=== PATIENT | male | born 1945 | race Caucasian/White ===

== ENCOUNTER 2018-05-31 10:30 | Inpatient (IN) ==
[2018-05-31 13:44] LABS: BASO# 0.02 X1000 (0.0-0.2); BASO% 0.3 % (0.0-0.8); EOS# 0.18 X1000 (0.0-0.7); EOS% 2.3 % (0.0-10.0); IMM GRAN# 0.03 X1000 (0.0-0.04); IMM GRAN% 0.4 % (0.0-0.5); LYMPH% 20.7 % (20.5-51.1); MCV 90.1 FL (81-99); MONO# 0.75 X1000 (0.11-0.59); MONO% 9.7 % (1.7-9.3); MPV 11.6 FL (7.4-10.4); NEUT# 5.15 X1000 (1.4-6.5); NEUT% 66.6 % (42.2-75.2); PLT 174 X1000 (130-400); RBC 3.33 XMIL (4.7-6.1); RDW 16.1 % (11.5-14.5); WBC 7.73 X1000 (4.8-10.8)
[2018-05-31] MEDS: PROTONIX IV SCH (13:48)
[2018-05-31] MEDS: SODIUM CHLORIDE 0.9% INJ SCH (13:48)
[2018-05-31 14:03] LABS: AGAP 12; BUN 15 mg/dL (8-22); CALCIUM 9.1 mg/dL (8.8-10.2); CHLORIDE 106 mmol/L (98-107); COSMO 287; CREATININE 0.7 mg/dL (0.7-1.2); ESTIMATED GFR > 60; GLUCOSE 152 mg/dL (70-104); POTASSIUM 3.7 mmol/L (3.5-5.1); SODIUM 142 mmol/L (136-145); TCO2 24 mmol/L (25-35)
--- NOTE | 2018-05-31 19:10 | Diag Imaging Result Doc PS360 ---
EXAM: CHEST-2 VIEWS 05/31/2018 HISTORY: SOB TECHNIQUE: PA and lateral chest COMMENT: There are bilateral pleural effusions. The effusion on the right was not present on 12/31/2017. There is also increased interstitial opacity generally. IMPRESSION: Pulmonary edema and pleural effusions. Electronically signed by Hardeep Cuadra 05/31/2018 7:08 PM
[2018-05-31] MEDS ORDERED: LASIX IV ONE (20:17)
[2018-05-31] MEDS ORDERED: LANOXIN IV ONE (20:59)
--- NOTE | 2018-05-31 21:22 | HISTORY AND PHYSICAL ---
CHIEF COMPLAINT: Passing black tarry stool this morning. HISTORY OF PRESENT ILLNESS: He is a 73-year-old, pleasant, white gentleman, with a known history of occult GI bleeding and has chronic atrial fibrillation waiting for Watchman device on of this month on Plavix, basically came in with black tarry stools. Previously seen by Dr. Blackburn. Since he is in the hospital, he is hemodynamically stable. No bowel movement noted. He was just admitted to observation for a follow up on serial hematocrits. He also complains of shortness of breath, chest x-ray, cardiomegaly with CHF and he is on atrial fibrillation in the past before. He is getting IV Lasix. As a result, hospital admission was warranted. PAST MEDICAL HISTORY: 1. CAD. 2. Type 2 diabetes. 3. Metabolic syndrome. 4. Hyperlipidemia. 5. Hypertension. 6. Superficial bladder tumors. 7. BPH. 8. History of occult GI bleeding. 9. 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 10. Atrial fibrillation with a diastolic heart failure. PAST SURGICAL HISTORY: Hemorrhoidectomy, CAD with stents in RCA and circumflex. Left carotid endarterectomy. Cholecystectomy. ALLERGIES: Not known. 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 No smoking. No alcohol. FAMILY HISTORY: Father of laryngeal cancer and heart attack at the age of 76. Mom of heart attack at 72. HEALTH MAINTENANCE: Flu vaccine, pneumococcal vaccine up to date. MEDICATIONS: Ultram 50 t.i.d., Lasix 40 daily, metformin 850 t.i.d., Precose 25 p.o. t.i.d., Plavix 75 daily, Crestor 20 daily, Betapace 120 p.o. b.i.d., amlodipine 5 daily. REVIEW OF SYSTEMS: HEENT: No dizziness, no headache, no vision problem. Neck: No goiter. No lymphadenopathy. Cardiopulmonary: Shortness of breath, tachycardia. No PND. No orthopnea. No swelling of feet. GI: Passing black tarry stools. No abdominal pain. : History of hesitancy, no hematuria or dysuria. Neurological: No focal symptoms or weakness. PHYSICAL EXAMINATION: VITAL SIGNS: Temperature is 97, pulse is 80, hemodynamics were stable. Room air 93%. 5 feet 9 inches, 240 pounds. HEENT: Atraumatic, normocephalic. No pallor noted. TMs are normal. Nose and throat within normal limits. NECK: Supple. No lymphadenopathy. CHEST: Bilateral air entry. CARDIAC: Irregular heart sounds. ABDOMEN: Belly is soft, obese, nontender. Good bowel sounds. RECTAL: Did not repeat. EXTREMITIES: No peripheral edema. NEUROLOGIC: No obvious neurological deficits. INVESTIGATIONS: CBC: White cell count 7.7, hematocrit 30, platelets 174. SMA-7 is normal. Glucose 202. Chest x-ray cardiomegaly with mild CHF. Last perfusion scan by extender inferior wall scar. No evidence of inducible ischemia. EF is 58%. ASSESSMENT AND PLAN: 1. A 73-year-old, white male, basically admitted to the hospital with gastrointestinal bleeding with previous history of occult gastrointestinal bleeding and not able to tolerate anticoagulation. Plan is serial hematocrit, orthostatic. If hematocrit below 25, transfuse. Continue IV Protonix, hold the medications. 2. Cardiomegaly with congestive heart failure. IV Lasix x1. 3. Reconcile home medicines. 4. Drug-induced lupus. We will discontinue hydralazine and waiting for Watchman device on the and follow up on stool for occult blood and EKG. cc: Ruslan Allan MD
[2018-05-31] MEDS: HUMALOG SUBQ SCH ×2 (22:11→22:30)
[2018-06-01] MEDS: HUMALOG SUBQ SCH ×4 (06:37→21:37)
[2018-06-01 06:45] LABS: BASO# 0.03 X1000 (0.0-0.2); BASO% 0.4 % (0.0-0.8); EOS# 0.14 X1000 (0.0-0.7); EOS% 1.9 % (0.0-10.0); HEMATOCRIT 29.2 % (42.0-52.0); HEMOGLOBIN 8.8 g/dL (14.0-18.0); IMM GRAN# 0.04 X1000 (0.0-0.04); IMM GRAN% 0.5 % (0.0-0.5); LYMPH# 1.32 X1000 (1.2-3.4); LYMPH% 17.9 % (20.5-51.1); MCH 27.1 PG (27-31); MCHC 30.1 g/dL (33-37); MCV 89.8 FL (81-99); MONO% 9.5 % (1.7-9.3); MPV 12.2 FL (7.4-10.4); NEUT# 5.16 X1000 (1.4-6.5); NEUT% 69.8 % (42.2-75.2); PLT 165 X1000 (130-400); RBC 3.25 XMIL (4.7-6.1); RDW 15.9 % (11.5-14.5); WBC 7.39 X1000 (4.8-10.8)
[2018-06-01 07:06] LABS: AGAP 12; BUN 10 mg/dL (8-22); CALCIUM 8.7 mg/dL (8.8-10.2); CHLORIDE 104 mmol/L (98-107); COSMO 280; CREATININE 0.5 mg/dL (0.7-1.2); ESTIMATED GFR > 60; GLUCOSE 135 mg/dL (70-104); POTASSIUM 3.2 mmol/L (3.5-5.1); SODIUM 140 mmol/L (136-145); TCO2 24 mmol/L (25-35)
--- NOTE | 2018-06-01 07:31 | EKG Report ---
Test Performed on : 05/31/2018 9:06:32 PM Test Reason : SOB Blood Pressure : / mmHG Vent. Rate : 101 BPM Atrial Rate : 093 BPM P-R Int : 000 ms QRS Dur : 106 ms QT Int : 320 ms P-R-T Axes : 000 030 154 degrees QTc Int : 414 ms Atrial fibrillation. with rapid ventricular response. ST & T wave abnormality, consider lateral ischemia Abnormal ECG When compared with ECG of 02-FEB-2018 14:56, QT has shortened Unconfirmed Result
[2018-06-01] MEDS ORDERED: LASIX IV ONE (13:01)
[2018-06-01] MEDS: PROTONIX IV SCH (13:17)
[2018-06-01] MEDS: SODIUM CHLORIDE 0.9% INJ SCH (13:17)
--- NOTE | 2018-06-01 19:08 | CARDIOLOGY CONSULTATION ---
DATE: 06/01/2018 CHIEF COMPLAINT ON PRESENTATION: Tarry stool. HISTORY OF PRESENT ILLNESS: Mr. Cruz is a 73-year-old white male with a history of coronary disease and diastolic heart failure as well as atrial fibrillation. He presented for evaluation of tarry stool that has been going on for around a week. He has a chronic history of GI bleeding and had been reinitiated on Plavix recently. He stopped the Plavix on Thursday and has continued to have some bloody stool. Over that time period he has had continued bouts of shortness of breath and occasional smothering episodes. He reports compliance with his medications and he does not endorse any sort of sodium indiscretion or fluid overload. The patient has been arranged for a Watchman device evaluation on the this month but apparently canceled it secondary to his tarry stool. PAST MEDICAL HISTORY: 1. Significant for coronary disease. He has a history of cardiac catheterization in 2015 in [place] showing a normal left main. The LAD had mild irregularities up to 30-40% the midvessel. Circumflex had mild in-stent stenosis of less than 40% in the midvessel. There is OM1 that was small with diffuse disease up to 80%, OM2 had ostial 40-50% lesions, RCA was dominant with a patent stent with a 60-70% in-stent stenosis. This was not treated secondary to the patient's history of GI bleeding was deemed appropriate for medical therapy. 2. Atrial fibrillation that is paroxysmal in nature and maintained on sotalol. He has had multiple episodes of GI bleeding with evaluations at [facility]. He has not been able to tolerate any sort of anticoagulation, Plavix or aspirin due to GI bleeding. 3. Diastolic heart failure. Last echocardiogram performed in April 2018 demonstrating EF 65%, septal and posterior wall thicknesses of 1.8 cm each, end-diastolic dimension of 4.5 cm. Normal right ventricular size and function. PA pressure was 65. 4. Pulmonary hypertension as demonstrated by echocardiogram in April 2018 showing a PA pressure of 65 mmHg. 5. Diabetes mellitus. 6. Hyperlipidemia. 7. Hypertension. 8. Carotid artery disease with left carotid endarterectomy in September 2013. 9. GI bleeding. 10. Iron deficiency anemia. Follows with Dr. Carmen Yancey for iron infusions. 11. BPH. SOCIAL HISTORY: He is . is present in the room. No current tobacco use. FAMILY HISTORY: Father of laryngeal cancer and a heart attack at age 76. Mother of a heart attack at 72. REVIEW OF SYSTEMS: A 10 system review of systems is negative except for those mentioned in HPI. PHYSICAL EXAMINATION: The patient is afebrile. His heart rate is 108, blood pressure 163/60.General: He is in no acute distress. HEENT: Oropharynx is moist. Poor dentition. Eye examination shows pink conjunctivae. White sclerae. Neck: Shows no obvious thyromegaly or thyroid tenderness. Cardiovascular: He is in a irregularly irregular rhythm. I do not hear any obvious murmurs. He has no S3. He has no lower extremity edema. Chest: Sounds relatively clear. He has no increased work of breathing. Abdomen: Soft, nontender, nondistended. He has no obvious organomegaly. Skin: Warm and dry throughout without any rashes. Neurological: Moving all extremities well. He has no lateralizing deficits. Psychiatric: Alert and oriented, pleasant. Normal mood and affect. PERTINENT DATA: EKG May 31 at 2106 shows atrial fibrillation, ST depression in the lateral leads, suggestion of left ventricular hypertrophy. It was reviewed by me. His chest x-ray demonstrated pulmonary edema with pleural effusions. Laboratory data shows a white count 7.39, hematocrit 29.2, platelet count 165,000, sodium 140, potassium 3.2, BUN 10, creatinine 0.5, ProBNP is 1899. ASSESSMENT: Mr. Cruz is a 73-year-old male with a history of coronary disease and diastolic failure. He presented with gastrointestinal bleeding. PLAN: He may be in some mild diastolic failure. I have reinitiated his medications including his antihypertensives as well as his Lasix. We will continue with those medications for the time being. In addition, he appears to be in atrial fibrillation. I have restarted his sotalol. His last EKG that we have on file from January appears to demonstrate that he is in atrial fibrillation as well. He has a EKG from visit with Dr. Pineda on April 28 appears to be in atrial fibrillation on that visit as well. We may decide to discontinue the sotalol, initiate a beta michael and pursue a rate control approach as opposed to rhythm control approach. cc: MD Ruslan Carpenter MD
[2018-06-01] MEDS: CRESTOR PO SCH (21:38)
[2018-06-01] MEDS: BETAPACE PO SCH (21:38)
--- NOTE | 2018-06-01 22:16 | PROGRESS NOTE ---
DATE: 06/01/2018 SUBJECTIVE: The patient has not had a bowel movement. Last night, he had some shortness of breath. Cardiology consult was obtained. He was in atrial fibrillation. Chest x-ray showed some cardiomegaly and CHF. He was given IV Lasix. He is feeling very well. No bowel movement noted. Initial admission was passing black melanotic stools. PHYSICAL EXAMINATION: Vital signs: Temperature is 98 degrees, pulse is 102. Vitals are stable. HEENT: No anemia noted. Chest: Bilateral air entry. Some crackles. Heart: Irregular heart sounds. Abdomen: Belly is soft, nontender. INVESTIGATIONS: CBC: White cell count 7.3, hematocrit 29, platelets 165,000. SMA-7: Potassium 3.2. ProBNP 2000. Stool occult blood is positive. ASSESSMENT AND PLAN: 1. History of gastrointestinal bleeding in the past. Occult blood loss, acute. Follow up on CBC. 2. Atrial fibrillation with congestive heart failure, diastolic heart failure. 3. Noncritical ischemic heart disease. Will restart on medicines. Appreciate Cardiology consult. He is waiting for a Watchman Device on the . 4. Will repeat the CBC and BMP in the morning and continue present treatment. LEVEL OF DOCUMENTATION: 25 minutes. cc: Ruslan Allan MD
[2018-06-02 06:17] LABS: BASO# 0.02 X1000 (0.0-0.2); BASO% 0.2 % (0.0-0.8); EOS# 0.16 X1000 (0.0-0.7); EOS% 1.9 % (0.0-10.0); HEMATOCRIT 30.2 % (42.0-52.0); HEMOGLOBIN 9.2 g/dL (14.0-18.0); IMM GRAN# 0.04 X1000 (0.0-0.04); IMM GRAN% 0.5 % (0.0-0.5); LYMPH# 1.42 X1000 (1.2-3.4); LYMPH% 17.1 % (20.5-51.1); MCH 27.1 PG (27-31); MCHC 30.5 g/dL (33-37); MCV 88.8 FL (81-99); MONO# 0.79 X1000 (0.11-0.59); MONO% 9.5 % (1.7-9.3); MPV 12.2 FL (7.4-10.4); NEUT# 5.87 X1000 (1.4-6.5); NEUT% 70.8 % (42.2-75.2); PLT 193 X1000 (130-400); RDW 16.2 % (11.5-14.5)
[2018-06-02 06:34] LABS: AGAP 13; BUN 11 mg/dL (8-22); CALCIUM 9.3 mg/dL (8.8-10.2); CHLORIDE 103 mmol/L (98-107); COSMO 286; CREATININE 0.7 mg/dL (0.7-1.2); ESTIMATED GFR > 60; GLUCOSE 157 mg/dL (70-104); POTASSIUM 3.6 mmol/L (3.5-5.1); SODIUM 142 mmol/L (136-145); TCO2 26 mmol/L (25-35)
[2018-06-02] MEDS: HUMALOG SUBQ SCH ×4 (07:01→21:35)
[2018-06-02] MEDS: NORVASC PO SCH (08:37)
[2018-06-02] MEDS: BETAPACE PO SCH ×2 (08:37→21:35)
[2018-06-02] MEDS: LASIX PO SCH (08:37)
[2018-06-02] MEDS: PROTONIX IV SCH (13:39)
[2018-06-02] MEDS: SODIUM CHLORIDE 0.9% INJ SCH (13:39)
--- NOTE | 2018-06-02 14:48 | CARDIOLOGY PROGRESS NOTE ---
DATE: 06/02/2018 SUBJECTIVE: Mr. Cruz reports he feels much better today. His breathing has improved. He reports good diuresis overnight, although output is poorly recorded. He does have a total of 8 voids not measured. PHYSICAL EXAMINATION: Vital Signs: He is afebrile, heart rate 94, blood pressure 127/55. General: No acute distress. Cardiovascular: He is in a regular rate and rhythm. He has no murmurs. No S3. He has no lower extremity edema. Chest: Sounds clear bilaterally. No increased work of breathing. Abdomen: Soft, nontender. PERTINENT DATA: Sodium is 142, potassium 3.6, BUN 11, creatinine 0.7. ASSESSMENT: Mr. Cruz is a 73-year-old male who presented with a gastrointestinal bleed and diastolic failure. PLAN: The patient diuresed significantly, it sounds like overnight, and symptomatically is better. He continues on home medications. He is stable for discharge when okay with the primary team. cc: MD Ruslan Carpenter MD
[2018-06-02] MEDS: CRESTOR PO SCH (21:34)
--- NOTE | 2018-06-02 21:53 | PROGRESS NOTE ---
DATE: 06/02/2018 SUBJECTIVE: Appreciated Cardiology consult. The patient had a BM, does not look like black tarry stool, heme-positive noted and breathing is improved. 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 OBJECTIVE: Vital Signs: Temperature is 97 degrees, pulse is 88, blood pressure is 160/70. HEENT exam: No pallor noted. JVD slightly elevated. Chest: Bilateral air entry. Cardiovascular: Irregular heart sounds. Abdomen: Belly is soft, nontender. Extremities: No peripheral edema noted. INVESTIGATIONS: CBC: White cell count 8.3, hematocrit 30, platelets 193,000. SMA-7: Sodium 142, potassium 3.6, chloride 103, BUN 11, creatinine 0.7. Glucose 157. ProBNP 1899. ASSESSMENT AND PLAN: 1. Chronic diastolic heart failure. 2. Chronic atrial fibrillation. 3. Occult gastrointestinal bleeding. So far, no signs of active gastrointestinal bleeding noted. Not orthostatic. Repeat the labs in the morning and continue on the Lasix and sotalol. If there is any significant bleeding, we will stop the Plavix, and we will follow up. He is due for a Watchman device on June 14 in [facility]. We will follow up. LEVEL OF DOCUMENTATION: 35 minutes. cc: Ruslan Allan MD
[2018-06-03] MEDS: HUMALOG SUBQ SCH (06:09)
[2018-06-03 06:50] LABS: BASO# 0.03 X1000 (0.0-0.2); BASO% 0.4 % (0.0-0.8); EOS% 2.4 % (0.0-10.0); HEMATOCRIT 30.8 % (42.0-52.0); HEMOGLOBIN 9.4 g/dL (14.0-18.0); IMM GRAN# 0.05 X1000 (0.0-0.04); IMM GRAN% 0.6 % (0.0-0.5); LYMPH# 1.68 X1000 (1.2-3.4); MCH 26.9 PG (27-31); MCHC 30.5 g/dL (33-37); MONO# 0.99 X1000 (0.11-0.59); MONO% 11.8 % (1.7-9.3); NEUT# 5.44 X1000 (1.4-6.5); NEUT% 64.8 % (42.2-75.2); PLT 219 X1000 (130-400); RDW 16.4 % (11.5-14.5); WBC 8.39 X1000 (4.8-10.8)
[2018-06-03 07:19] LABS: AGAP 11; BUN 11 mg/dL (8-22); CALCIUM 9.4 mg/dL (8.8-10.2); CHLORIDE 106 mmol/L (98-107); COSMO 283; CREATININE 0.6 mg/dL (0.7-1.2); ESTIMATED GFR > 60; GLUCOSE 145 mg/dL (70-104); POTASSIUM 3.5 mmol/L (3.5-5.1); SODIUM 141 mmol/L (136-145); TCO2 24 mmol/L (25-35)
[2018-06-03 07:29] VITALS: BP 164/74
[2018-06-03] MEDS: LASIX PO SCH (09:04)
[2018-06-03] MEDS: NORVASC PO SCH (09:04)
[2018-06-03] MEDS: BETAPACE PO SCH (09:04)
--- NOTE | 2018-06-05 18:25 | DISCHARGE SUMMARY ---
ADMISSION DATE: 05/31/2018 DISCHARGE DATE: 06/03/2018 DISCHARGE DIAGNOSES: 1. Anemia due to occult gastrointestinal bleeding, stable. 2. Chronic diastolic heart failure exacerbation acutely due to underlying chronic atrial fibrillation. 3. 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 4. Vitamin B12 deficiency. 5. Uncontrolled diabetes. 6. Persistent atrial fibrillation. 7. Ischemic heart disease, with 2 stents in the right coronary artery and circumflex. 8. Metabolic syndrome. 9. Superficial bladder cancer with transitional cell. 10. Benign prostatic hypertrophy. 11. Hypertension. 12. Hyperlipidemia. CONSULTANTS: Dr. Afshin San. BRIEF HISTORY: Please see the H and P that was done on 05/31/2018. In brief, he is a 73-year-old white male. Basically they called my answering service; the was complaining that he was passing dark black tarry stools for the last 1 day. He was also short of breath and wheezing. He had a prior history of GI bleeding requiring multiple blood transfusions. The patient was seen by Dr. Blackburn. HOSPITAL COURSE: He was admitted directly to the hospital for the GI bleeding and shortness of breath. He is also waiting for a Watchman device on 06/14 in [facility]. During this hospital course he had a positive occult blood, but no signs of active GI bleeding noted. Serial hematocrits were stable. Chest x-ray showed cardiomegaly with chronic atrial fibrillation. The patient's symptoms much improved after Lasix. Hemodynamics were stable. Dr. San continued medical management, followup with foreign service teacher in [place] for the Watchman device. He was not a candidate for anticoagulation due to GI bleeding and hematuria in the past. The rest of the hospital course was uneventful. LABORATORY DATA: CBC: White cell count 8.3, hematocrit 30.8, platelet count 219,000. SMA 7: Sodium 141, potassium 3.5, chloride 106, BUN 11, creatinine 0.6, glucose 148. ProBNP 1899. Stool occult blood is negative. DIAGNOSTIC DATA: Chest x-ray: Cardiomegaly with CHF. EKG: Persistent atrial fibrillation. DISCHARGE MEDICATIONS: 1. Tramadol 50 t.i.d. 2. Lasix 40 daily. 3. Metformin 850 t.i.d. with meals. 4. Acarbose 25 t.i.d. 5. Tylenol as needed for pain. 6. Plavix 75 daily. 7. Crestor 20 daily. 8. Betapace 120 p.o. b.i.d. 9. Amlodipine 5 daily. 10. Discontinue hydralazine due to drug-induced lupus. DISCHARGE INSTRUCTIONS: 1. Watchman device on 06/14. 2. Follow up in my office in 2 weeks as well as cloud architect, Dr. Pineda. cc: MD Hood Kaplan MD
== END 2018-06-03 09:25 | disposition home or self-care (01) | DRG 308 ==
LOC: INTOOBSV 10:30 → DIRADM 10:30 → 4N 11:28 → DIRADM 11:29 → UNDODISOB 06-03 09:25
PROVIDERS: ADMIT Internal Medicine; ATTEND Internal Medicine
CPT/HCPCS: 71020; 71046; 80048; 82270; 82550; 82948; 83880; 84484; 85025; 93005; 93010; 94761; A9270; C9113; J1160; J1815; J1940; S0164; XXXXX

== ENCOUNTER 2018-09-08 09:21 | Inpatient (IN) ==
[2018-09-08] MEDS ORDERED: LASIX IV ONE (10:48)
[2018-09-08] MEDS ORDERED: LASIX IV SCH (11:00)
[2018-09-08 11:24] LABS: HEMATOCRIT 25.2 % (42.0-52.0); HEMOGLOBIN 7.1 g/dL (14.0-18.0); MCH 27.2 PG (27-31); MCHC 28.2 g/dL (33-37); MCV 96.6 FL (81-99); MPV 11.8 FL (7.4-10.4); RBC 2.61 XMIL (4.7-6.1); RDW 19.5 % (11.5-14.5); WBC 8.5 X1000 (4.8-10.8)
[2018-09-08] MEDS ORDERED: NS 500 ML ONE (13:30)
--- NOTE | 2018-09-08 20:11 | HISTORY AND PHYSICAL ---
CHIEF COMPLAINT: Shortness of breath, PND, orthopnea, swelling of feet, anemia, heme-positive stools. HISTORY OF PRESENT ILLNESS: He is a 73-year-old white gentleman who was seen in my office yesterday for the above symptoms. Patient was found to have a hemoglobin 7 g, hematocrit 24. Heme-positive stools. He has a history of occult GI bleeding. He is not taking any aspirin or Plavix. He also has shortness of breath. He was in atrial fibrillation with mild CHF on the x- ray. As a result, a hospital admission was warranted. PAST MEDICAL HISTORY: 1. Coronary artery disease. 2. Type 2 diabetes. 3. Hydralazine-induced systemic lupus erythematosus. 4. Metabolic syndrome. 5. Fracture of T12. 6. Gross hematuria due to a superficial bladder tumor under the care of Dr. Luna. 7. Hyperlipidemia. 8. Hypertension. 9. Chronic iron-deficiency anemia. 10. Chronic atrial fibrillation. PAST SURGICAL HISTORY: Hemorrhoidectomy, CAD with a stent of the RCA and circumflex, TURP, lap cholecystectomy. Also, left carotid endarterectomy. MEDICATIONS: Tramadol 50 t.i.d., Lasix 40 daily, metformin 850 t.i.d. Precose 25 t.i.d., Tylenol as needed, Crestor 20 mg daily, Betapace 120 p.o. b.i.d., amlodipine 5 mg p.o. b.i.d., Imdur 30 mg daily. ALLERGIES: Hydralazine due to drub-inducible Lupus Norvasc, edema. SOCIAL HISTORY: 2nd time. No children. 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 No smoking. No alcohol. FAMILY HISTORY: Father of laryngeal cancer at 76. Mom of heart attack at 82. HEALTH MAINTENANCE: Flu vaccine 2018, Prevnar 13 2017. Last rectal exam 08/2018. The prostate exam 08/2018. Colonoscopy 08/[address] Blackburn. REVIEW OF SYSTEMS: HEENT: No headache no vision problem. No earache. No sore throat. Neck: No goiter. No lymphadenopathy. No bruit. Cardiopulmonary: Shortness of breath. No chest pain and history of PND, orthopnea, and swelling of feet. GI: No nausea, vomiting, abdominal pain. No melena. : No history of dysuria, hesitancy, frequency. Musculoskeletal: No joint pain. Neurologic: No focal symptoms or weakness. PHYSICAL EXAMINATION: VITAL SIGNS: Temperature is 98 degrees, pulse is 87, blood pressure 163/65. HEENT EXAM: Atraumatic, normocephalic. Pale. JVD is not elevated. CHEST: Is wheezing. HEART: Sounds are irregular with 2/6 systolic murmur left lower sternal border. ABDOMEN: Belly is soft, obese, nontender. Good bowel sounds and heme-positive stools. Prostate is normal. EXTREMITIES: 3+ pedal edema in both legs. NEUROLOGIC: No obvious neurological deficits. INVESTIGATIONS: CBC: White cell count 8.5, hematocrit 25, platelets 225,000. ProBNP 1400. Troponin is negative. Chest x-ray: Cardiomegaly with CHF. ASSESSMENT AND PLAN: 1. A 73-year-old white gentleman admitted to the hospital with chronic atrial fibrillation, ischemic heart disease, diastolic heart failure with occult gastrointestinal bleeding with anemia. Gastrointestinal workup was negative. Plan is IV Lasix, transfusing 2 units of packed red blood cells. 2. Reconcile home medicines 3. Needed gastrointestinal workup with Dr. Blackburn for capsule endoscopy. 4. Umbilical hernia stable. 5. Coronary artery disease with stents x2 by Dr. Pineda. 6. Carotid stenosis with left carotid endarterectomy by Dr. Anand. 7. Drug-induced lupus from hydralazine. 8. Atrial fibrillation, currently on sotalol and not able to take anticoagulation due to gastrointestinal bleeding. 9. Reconcile home medications. Repeat the labs in the morning. cc: Ruslan Allan MD MTDD
[2018-09-08] MEDS: CRESTOR PO SCH (20:53)
[2018-09-08] MEDS: BETAPACE PO SCH (20:54)
[2018-09-08] MEDS: NORVASC PO SCH (20:57)
[2018-09-09 06:32] LABS: EOS% 2.5 % (0.0-10.0); HEMATOCRIT 31.4 % (42.0-52.0); HEMOGLOBIN 9.3 g/dL (14.0-18.0); LYMPH% 15.3 % (20.5-51.1); MCHC 29.6 g/dL (33-37); MONO% 10.4 % (1.7-9.3); MPV 11.5 FL (7.4-10.4); PLT 212 X1000 (130-400); RBC 3.45 XMIL (4.7-6.1); RDW 18.5 % (11.5-14.5); WBC 7.66 X1000 (4.8-10.8)
[2018-09-09 06:33] LABS: BASO# 0.03 X1000 (0.0-0.2); BASO% 0.4 % (0.0-0.8); EOS# 0.19 X1000 (0.0-0.7); IMM GRAN# 0.03 X1000 (0.0-0.04); IMM GRAN% 0.4 % (0.0-0.5); LYMPH# 1.17 X1000 (1.2-3.4); NEUT# 5.44 X1000 (1.4-6.5)
[2018-09-09 06:43] LABS: AGAP 11; BUN 13 mg/dL (8-22); CHLORIDE 102 mmol/L (98-107); COSMO 277; CREATININE 0.8 mg/dL (0.7-1.2); ESTIMATED GFR > 60; GLUCOSE 121 mg/dL (70-104); POTASSIUM 3.6 mmol/L (3.5-5.1); SODIUM 138 mmol/L (136-145); TCO2 25 mmol/L (25-35)
--- NOTE | 2018-09-09 07:26 | Diag Imaging Result Doc PS360 ---
EXAM: CHEST-2 VIEWS HISTORY: hypoxia TECHNIQUE: Chest two views COMPARISON: 05/31/2018 FINDINGS: The lungs are well expanded. The heart is mildly enlarged. Mild increased interstitial markings similar to the prior exam. Tiny pleural effusions. No consolidation. IMPRESSION: No interval improvement. Electronically signed by Bruno Pena 09/09/2018 7:24 AM
[2018-09-09] MEDS: GLUCOPHAGE PO SCH ×3 (08:06→16:38)
[2018-09-09] MEDS: LASIX PO SCH (08:07)
[2018-09-09] MEDS: TYLENOL PO SCH ×3 (08:07→16:39)
[2018-09-09] MEDS: NORVASC PO SCH ×2 (08:07→21:42)
[2018-09-09] MEDS: IMDUR PO SCH (08:07)
[2018-09-09] MEDS: LASIX IV SCH (08:08)
[2018-09-09] MEDS: BETAPACE PO SCH ×2 (08:08→21:41)
[2018-09-09] MEDS: PRECOSE PO SCH ×3 (08:10→16:38)
[2018-09-09] MEDS ORDERED: INJECTAFER 750 MG in NS 250 ML IV ONE (08:32)
[2018-09-09] MEDS: ULTRAM PO SCH ×3 (09:47→16:39)
[2018-09-09] MEDS: MIRALAX PO SCH (09:48)
[2018-09-09] MEDS: CRESTOR PO SCH (21:42)
--- NOTE | 2018-09-09 22:08 | PROGRESS NOTE ---
DATE: 09/09/2018 SUBJECTIVE: The patient is doing better and status post 2 units of packed RBCs. Complains of constipation. EXAMINATION: Vital signs: Temperature is 97 degrees, pulse 79, blood pressure 143/62. HEENT: Within normal limits. Neck: Supple. Chest: Clear. Heart: Sounds are irregular. Abdomen: Belly is soft, nontender. Neurologic: No neurological deficits. INVESTIGATIONS: CBC: White cell count 7.6, hematocrit 31, platelets 212,000. SMA 7 was normal. Chest x-ray was stable. ASSESSMENT AND PLAN: 1. Anemia due to occult gastrointestinal bleeding. We will transfuse. Inject for 1 dose. Repeat the labs in the morning. 2. MiraLAX was added for constipation. 3. Chronic atrial fibrillation and congestive heart failure stable with Lasix. 4. Family wants to go for another re-workup with Dr. Blackburn. We will get them an outpatient appointment. Previous EGD, colonoscopy, capsule endoscopy were unable to determine and continue present treatment. LEVEL OF DOCUMENTATION: 35 minutes. cc: Ruslan Allan MD
[2018-09-10 06:22] LABS: BASO# 0.03 X1000 (0.0-0.2); BASO% 0.4 % (0.0-0.8); EOS# 0.25 X1000 (0.0-0.7); EOS% 3.3 % (0.0-10.0); HEMOGLOBIN 9.4 g/dL (14.0-18.0); IMM GRAN# 0.04 X1000 (0.0-0.04); IMM GRAN% 0.5 % (0.0-0.5); LYMPH# 1.11 X1000 (1.2-3.4); LYMPH% 14.8 % (20.5-51.1); MCH 26.7 PG (27-31); MCHC 29.4 g/dL (33-37); MCV 90.9 FL (81-99); MONO# 0.88 X1000 (0.11-0.59); MONO% 11.8 % (1.7-9.3); MPV 11.6 FL (7.4-10.4); NEUT# 5.17 X1000 (1.4-6.5); NEUT% 69.2 % (42.2-75.2); PLT 232 X1000 (130-400); RBC 3.52 XMIL (4.7-6.1); RDW 18.4 % (11.5-14.5); WBC 7.48 X1000 (4.8-10.8)
[2018-09-10 06:43] LABS: AGAP 9; BUN 13 mg/dL (8-22); CALCIUM 8.9 mg/dL (8.8-10.2); CHLORIDE 99 mmol/L (98-107); COSMO 270; CREATININE 0.8 mg/dL (0.7-1.2); ESTIMATED GFR > 60; GLUCOSE 125 mg/dL (70-104); POTASSIUM 3.7 mmol/L (3.5-5.1); SODIUM 134 mmol/L (136-145); TCO2 26 mmol/L (25-35)
[2018-09-10 07:23] VITALS: BP 146/67
[2018-09-10] MEDS: PRECOSE PO SCH (09:20)
[2018-09-10] MEDS: IMDUR PO SCH (09:20)
[2018-09-10] MEDS: ULTRAM PO SCH (09:20)
[2018-09-10] MEDS: GLUCOPHAGE PO SCH (09:20)
[2018-09-10] MEDS: BETAPACE PO SCH (09:21)
[2018-09-10] MEDS: NORVASC PO SCH (09:21)
[2018-09-10] MEDS: TYLENOL PO SCH (09:22)
[2018-09-10] MEDS: LASIX PO SCH (09:23)
[2018-09-10] MEDS: MIRALAX PO SCH (09:23)
[2018-09-10] MEDS: LASIX IV SCH (09:23)
--- NOTE | 2018-09-12 07:44 | DISCHARGE SUMMARY ---
ADMISSION DATE: 09/08/2018 DISCHARGE DATE: 09/10/2018 DISCHARGING DIAGNOSIS: Symptomatic anemia due to occult gastrointestinal bleeding. SECONDARY DIAGNOSIS: 1. Chronic diastolic heart failure. 2. Coronary artery disease with 2 stents. 3. Type 2 diabetes. 4. Hydralazine induced lupus erythematosus. 5. Metabolic syndrome. 6. Chronic fracture of T12. 7. History of superficial bladder tumors. 8. Hyperlipidemia. 9. Hypertension. 10. Chronic atrial fibrillation. 11. Chronic iron deficiency anemia. PROCEDURES: 1. Transfusion of 2 units of packed RBC. 2. Iron transfusion of Injectafer. BRIEF HISTORY: Please see the H and P that was done on 09/08/2018. In brief, he is a 73-year-old white gentleman who was admitted directly from my office with hemoglobin 7, hematocrit 24, associated with swelling of feet, shortness of breath, cough, and wheezing. He had a mild decompensated diastolic heart failure with superimposed anemia. He has a chronic GI bleeding loss, etiology to be determined. Patient had multiple workup done by Dr. Blackburn. EGD, colonoscopy, capsule endoscopy were negative in the past. The patient was given 2 units of packed RBC along with 1 dose of Injectafer, 750 mg were given. Follow up Lasix. His symptoms were much improved. He continues to have heme-positive stools. At the time of discharge the labs are as follows: CBC: White cell count 7.4, hematocrit 32, platelets 232,000. Sodium 134, potassium 3.7, chloride 99, BUN 13, creatinine 0.8. ProBNP 1400. Chest x-ray reported cardiomegaly, interstitial markings. DISCHARGE INSTRUCTIONS: The patient was discharged home in a stable condition with the following instructions: 1. Tramadol 50 t.i.d. 2. Lasix 40 daily. 3. Metformin 850 t.i.d. 4. Precose 25 mg t.i.d. 5. Crestor 20 daily. 6. Sotalol 120 p.o. b.i.d. 7. Amlodipine 5 mg p.o. b.i.d. 8. Imdur 30 mg daily. 9. Icar C Plus 1 tablet daily. I am going to arrange to see Dr. Blackburn for other GI workup. He cannot tolerate any aspirin, Plavix, or anticoagulation due to chronic GI bleeding loss as well as hematuria. The patient is well known about the pros and cons and the risk of stroke, not taking the anticoagulants. I also discussed with the . cc: MD Dr. Alexey Kaplan
== END 2018-09-10 11:11 | disposition home or self-care (01) | DRG 811 ==
LOC: DIRADM 09:21 → 4N 09:51
PROVIDERS: ADMIT Internal Medicine; ATTEND Internal Medicine
CPT/HCPCS: 36430; 71020; 71046; 80048; 82948; 83880; 84484; 85025; 85027; 86850; 86870; 86900; 86901; 86920; 86922; A9270; J1439; J1940; J7040; J7050; P9016; XXXXX

== ENCOUNTER 2018-11-30 10:51 | Inpatient (IN) ==
[2018-11-30] MEDS ORDERED: NS 500 ML IV ONE (11:55)
[2018-11-30 12:39] LABS: BASO# 0.04 X1000 (0.0-0.2); BASO% 0.5 % (0.0-0.8); EOS# 0.27 X1000 (0.0-0.7); EOS% 3.2 % (0.0-10.0); HEMATOCRIT 24.2 % (42.0-52.0); IMM GRAN# 0.07 X1000 (0.0-0.04); IMM GRAN% 0.8 % (0.0-0.5); LYMPH# 1.61 X1000 (1.2-3.4); MCH 26.8 PG (27-31); MCHC 28.9 g/dL (33-37); MCV 92.7 FL (81-99); MONO# 1.08 X1000 (0.11-0.59); MONO% 12.7 % (1.7-9.3); NEUT# 5.41 X1000 (1.4-6.5); NEUT% 63.8 % (42.2-75.2); PLT 190 X1000 (130-400); RBC 2.61 XMIL (4.7-6.1); RDW 17.7 % (11.5-14.5); WBC 8.48 X1000 (4.8-10.8)
[2018-11-30 12:46] LABS: AGAP 11; BUN 25 mg/dL (8-22); CALCIUM 9.5 mg/dL (8.8-10.2); CHLORIDE 105 mmol/L (98-107); COSMO 287; CREATININE 0.7 mg/dL (0.7-1.2); ESTIMATED GFR > 60; GLUCOSE 114 mg/dL (70-104); SODIUM 141 mmol/L (136-145); TCO2 25 mmol/L (25-35)
[2018-11-30 13:30] LABS: ANISOCYTOSIS 1+; BANDS 4 % (0-1); EOS 2 % (1-10); LYMPHS 20 % (21-51); MONO 4 % (1-9); SEGS 70 % (42-75)
[2018-11-30 13:31] LABS: HYPOCHROM 1+; LARGE PLATELETS 1+
[2018-11-30] MEDS ORDERED: NS 500 ML ONE (16:48)
--- NOTE | 2018-11-30 21:48 | HISTORY AND PHYSICAL ---
CHIEF COMPLAINT: Bleeding per rectum, hemoglobin 7, hematocrit 22. HISTORY OF PRESENT ILLNESS: He is a 73-year-old white gentleman who has occult gastrointestinal bleeding, admitted several times with blood transfusions, not able to take anticoagulation. Seen by Dr. Zuñiga. Patient had a capsule endoscopy. 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 Patient has been referred to [facility] for enteroscopy. In the meantime, he came to my office with with pale looking. Hemodynamics were stable and hemoglobin 7, hematocrit 24. He did receive iron transfusion by Dr. Yancey. Basically admitted to the hospital for symptomatic anemia. I would like to get an appointment as early as possible to be transferred to [facility] to cauterize these AVMs. PAST MEDICAL HISTORY: 1. Coronary artery disease. 2. Type 2 diabetes. 3. Hydralazine induced systemic lupus erythematosus. 4. Metabolic syndrome. 5. Fracture of T12. 6. Gross hematuria due to superficial bladder tumor. 7. Hyperlipidemia. 8. Hypertension. 9. Chronic atrial fibrillation. PAST SURGICAL HISTORY: 1. Hemorrhoidectomy. 2. CAD with a stent at right coronary artery and circumflex artery. 3. TURP. 4. Laparoscopic cholecystectomy. 5. Left carotid endarterectomy. MEDICINES: 1. Tramadol 50 t.i.d. 2. Lasix 40 mg daily. 3. Metformin 500 mg t.i.d. 4. Precose 25 t.i.d. 5. Tylenol as needed. 6. Crestor 20 mg daily. 7. Betapace 120 p.o. b.i.d. 8. Amlodipine 5 mg p.o. b.i.d. 9. Imdur 30 mg daily. ALLERGIES: 1. Hydralazine, drug-induced lupus. 2. Norvasc, causing edema. SOCIAL HISTORY: 2nd time. 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 No smoking, no alcohol. FAMILY HISTORY: Father of laryngeal cancer at 76. Mom of heart attack at 82. HEALTH MAINTENANCE: Flu vaccine in 2019. Prevnar 13 in 2018. Last rectal exam in August 2018. Colonoscopy in August [address] Zuñiga. REVIEW OF SYSTEMS: HEENT: No headache. No vision problem. No earache. No sore throat. Neck: No goiter. No lymphadenopathy. No bruit. Cardiopulmonary: No chest pain, shortness of breath, PND, orthopnea. GI: No nausea, vomiting, abdominal pain. No swelling of feet. No joint pain. Neurologic: No focal symptoms. PHYSICAL EXAMINATION: VITAL SIGNS: Temperature is 97.8 degrees, pulse 88[place] [address], oxygen saturation 94% on room air. HEENT: Atraumatic, normocephalic. Pupils equal, react to light. TMs are normal. Nose and throat within normal limits. NECK: Supple. No lymphadenopathy. CHEST: Bilateral air entry. HEART: Regular heart sounds. ABDOMEN: Belly is soft, obese, nontender. Good bowel sounds. Heme-positive stools. EXTREMITIES: No peripheral edema or cyanosis. NEUROLOGIC: No obvious neurological deficits. INVESTIGATIONS: CBC: White cell count 8.4, hematocrit 24, platelet 190,000. Sodium 140, potassium 4.0, chloride 105, BUN 25, creatinine 0.7, glucose 114. 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 PLAN: [facility] for enteroscopy as soon as possible. Transfusions to maintain hematocrit around 30. Slowly reconcile home medications and will repeat the CBC and SMA-7 in the morning. cc: Ruslan Allan MD MTDD
[2018-12-01 07:12] LABS: AGAP 9; BUN 18 mg/dL (8-22); CALCIUM 8.5 mg/dL (8.8-10.2); CHLORIDE 104 mmol/L (98-107); COSMO 280; CREATININE 0.6 mg/dL (0.7-1.2); ESTIMATED GFR > 60; GLUCOSE 136 mg/dL (70-104); POTASSIUM 3.6 mmol/L (3.5-5.1); SODIUM 138 mmol/L (136-145); TCO2 25 mmol/L (25-35)
[2018-12-01 07:59] LABS: BASO# 0.04 X1000 (0.0-0.2); BASO% 0.4 % (0.0-0.8); EOS# 0.24 X1000 (0.0-0.7); EOS% 2.6 % (0.0-10.0); HEMOGLOBIN 8.5 g/dL (14.0-18.0); IMM GRAN# 0.07 X1000 (0.0-0.04); IMM GRAN% 0.8 % (0.0-0.5); LYMPH# 1.14 X1000 (1.2-3.4); LYMPH% 12.4 % (20.5-51.1); MCH 27.3 PG (27-31); MCHC 30.4 g/dL (33-37); MONO# 1.01 X1000 (0.11-0.59); MPV 11.7 FL (7.4-10.4); NEUT# 6.69 X1000 (1.4-6.5); NEUT% 72.8 % (42.2-75.2); PLT 197 X1000 (130-400); RBC 3.11 XMIL (4.7-6.1); WBC 9.19 X1000 (4.8-10.8)
[2018-12-01] MEDS ORDERED: NS 500 ML IV ONE (08:14)
[2018-12-01] MEDS: LASIX PO SCH ×2 (09:29→21:34)
[2018-12-01] MEDS: GLUCOPHAGE PO SCH ×3 (09:29→17:45)
[2018-12-01] MEDS: ICAR-C PLUS PO SCH (09:30)
[2018-12-01] MEDS: BETAPACE PO SCH ×2 (09:30→21:33)
[2018-12-01] MEDS: ULTRAM PO SCH ×3 (09:30→17:46)
[2018-12-01] MEDS: TYLENOL PO SCH ×3 (09:30→17:46)
[2018-12-01] MEDS: PRECOSE PO SCH ×3 (09:31→17:45)
[2018-12-01] MEDS ORDERED: CRESTOR PO SCH (21:00)
--- NOTE | 2018-12-01 21:57 | PROGRESS NOTE ---
DATE: 12/01/2018 SUBJECTIVE: The patient did receive 2 units of packed RBCs. Still waiting to hear from [facility]. REVIEW OF SYSTEMS: None reported. OBJECTIVE: Vital Signs: Temperature is 97 degrees. Vitals are stable. HEENT: Slightly pale. Chest: Clear. Cardiovascular: Irregular heart sounds. Abdomen: Belly is soft, nontender. INVESTIGATIONS: CBC: White cell count 9.1, hematocrit 28, platelets 197. Sodium 138, potassium 3.6, chloride 104, BUN 18, creatinine 0.6 glucose 136. 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 Hematological support to keep the hematocrit around 30. Reconcile home medicines. He will be transferred to [facility] and get an appointment, and is working with Dr. Zuñiga's office. LEVEL OF DOCUMENTATION: 25 minutes. cc: Ruslan Allan MD MTDCastillo
[2018-12-02 08:00] VITALS: BP 143/60
[2018-12-02] MEDS: ULTRAM PO SCH (08:49)
[2018-12-02] MEDS: BETAPACE PO SCH (08:50)
[2018-12-02] MEDS: TYLENOL PO SCH (08:51)
[2018-12-02] MEDS: LASIX PO SCH (08:51)
[2018-12-02] MEDS: ICAR-C PLUS PO SCH (08:51)
[2018-12-02] MEDS: GLUCOPHAGE PO SCH (08:51)
[2018-12-02] MEDS: PRECOSE PO SCH (08:51)
--- NOTE | 2018-12-03 13:33 | DISCHARGE SUMMARY ---
ADMISSION DATE: 11/30/2018 DISCHARGE DATE: 12/02/2018 DISCHARGING DIAGNOSIS: Symptomatic anemia due to occult gastrointestinal bleeding due to arteriovenous malformations revealed upper part of the small intestine and jejunum by recent capsule endoscopy. SECONDARY DIAGNOSES: 1. Coronary artery disease. 2. Type 2 diabetes. 3. Hydralazine-induced systemic lupus erythematosus. 4. Metabolic syndrome. 5. Fracture of T12. 6. Superficial bladder tumor, stable. 7. Hyperlipidemia. 8. Hypertension. 9. Chronic atrial fibrillation. 10. Stents in the right coronary artery and circumflex. 11. Peripheral vascular disease with status post left carotid endarterectomy. PROCEDURE: Transfusion of 3 units of packed RBCs. BRIEF HISTORY: Please see the H and P that was done on 11/30/2018. In brief, he is a 73-year-old white gentleman admitted to the hospital with symptomatic anemia. Hemoglobin 7 hematocrit 24, with underlying comorbid condition. He has recurrent GI bleeding previously seen by Dr. Blackburn. Negative upper and lower endoscopies. The patient was referred during previous admission to Dr. Zuñiga, who did a capsule endoscopy. Findings with AV malformations in the upper part of the small bowel. The patient has been referred to enteroscopy in [facility] for cauterizing these bleeding spots. I spoke to the family, as well as Dr. Zuñiga's office. He has an appointment to see on December 13 for the same procedure. At the time of discharge, he is hemodynamically stable. CBC: White cell count 9, hematocrit 28 after 2 units, platelets 197. Sodium 138, potassium 3.6, chloride 104. BUN 18, creatinine 0.6, glucose 136. DISCHARGE INSTRUCTIONS: 1. Tramadol 50 t.i.d., Lasix 40 p.o. b.i.d., metformin 850 t.i.d., acarbose 25 t.i.d., Tylenol as needed, Crestor 20 mg daily, Betapace 120 mg b.i.d., Icar C Plus 1 tablet daily. 2. Flu vaccine 01/02/2018, pneumococcal 01/02/2018. 3. Follow up with [facility], as well as in my office, next week. cc: MD Hood Slater MD William E. Hughes, MD Jagan Reddy, MD Dr. Alexander
== END 2018-12-02 09:58 | disposition home or self-care (01) | DRG 811 ==
LOC: DIRADM 10:51 → EDIPHOLD 11:11 → 3N 13:44
PROVIDERS: ADMIT Internal Medicine; ATTEND Internal Medicine

== ENCOUNTER 2018-12-20 17:07 | Observation (INO) ==
[2018-12-20] MEDS ORDERED: NS 500 ML IV ONE (18:18)
--- NOTE | 2018-12-20 19:01 | HISTORY AND PHYSICAL ---
CHIEF COMPLAINT: Occult gastrointestinal bleeding. Hemoglobin was 8, hematocrit 26. HPI: He is a 73-year-old white gentleman who recently had a blood transfusion. Waiting for enteroscopy at [facility] on January 12 to cauterize the AV malformation in jejunum. In the meantime, patient was brought in with heme-positive stools, pale looking. Basically, admitted to the hospital for blood transfusion until he goes to [facility]. PAST MEDICAL HISTORY: CAD, type 2 diabetes, metabolic syndrome, T12 fracture, superficial bladder tumor, hyperlipidemia, hypertension, chronic atrial fibrillation, hydralazine- induced lupus. PAST SURGICAL HISTORY: Hemorrhoidectomy, CAD with a stent RCA and circumflex artery, TURP, laparoscopy cholecystectomy, left carotid endarterectomy. MEDICATIONS ARE: Tramadol, Lasix, metformin, Precose, Crestor, Betapace, amlodipine, ALLERGIES: Norvasc and hydralazine. SOCIAL HISTORY: 2nd time. No children. 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 No alcohol. FAMILY HISTORY: Father of laryngeal cancer at 76. Mom of heart attack at 82. REVIEW OF SYSTEMS: HEENT: Fatigue, listless, dyspnea on exertion. Rapid atrial fibrillation. No chest pain, shortness of breath. GI: No nausea, vomiting, abdominal pain. Bleeding per rectum heme-positive stools. No hematuria. No dysuria. No swelling of feet. No joint pain. Neurologic: No focal symptoms. PHYSICAL EXAMINATION: Temperature is 98 degrees, pulse is 87, blood pressure is stable. 5 feet 9, 216 pounds. On room air 94%. HEENT: Pale. NECK: Supple. CHEST: Bilateral air entry irregular. HEART: Sounds tachycardic. ABDOMEN: Belly is soft, obese, nontender. EXTREMITIES: No edema. No cyanosis. NEUROLOGIC: No neurological deficits. INVESTIGATIONS: Hemoglobin 8, hematocrit 26. ASSESSMENT AND PLAN: 1. Symptomatic anemia due to occult gastrointestinal bleeding. Please see the previous H and Ps. Plan is transfusion 2 units as needed. Maintain hematocrit 30. 2. Reconcile home medicines. We will hopefully get fix the problem at [facility] on January 12. 3. Will follow up on the labs. cc: MD VIRGINIA Kaplan
[2018-12-20 19:38] LABS: BASO# 0.04 X1000 (0.0-0.2); BASO% 0.5 % (0.0-0.8); EOS# 0.28 X1000 (0.0-0.7); EOS% 3.3 % (0.0-10.0); HEMATOCRIT 27.6 % (42.0-52.0); IMM GRAN# 0.04 X1000 (0.0-0.04); IMM GRAN% 0.5 % (0.0-0.5); LYMPH# 1.29 X1000 (1.2-3.4); LYMPH% 15.4 % (20.5-51.1); MCV 93.2 FL (81-99); MONO# 0.89 X1000 (0.11-0.59); MONO% 10.6 % (1.7-9.3); NEUT# 5.84 X1000 (1.4-6.5); NEUT% 69.7 % (42.2-75.2); PLT 179 X1000 (130-400); RBC 2.96 XMIL (4.7-6.1); RDW 16.9 % (11.5-14.5); WBC 8.38 X1000 (4.8-10.8)
[2018-12-20] MEDS: BETAPACE PO SCH (20:36)
[2018-12-20] MEDS: TYLENOL PO SCH (20:37)
[2018-12-20] MEDS: ULTRAM PO SCH (20:37)
[2018-12-20] MEDS: LASIX PO SCH (20:37)
[2018-12-20] MEDS ORDERED: CRESTOR PO SCH (21:00)
[2018-12-21] MEDS: ULTRAM PO SCH (06:41)
[2018-12-21] MEDS: TYLENOL PO SCH (06:41)
[2018-12-21 07:46] LABS: BASO# 0.04 X1000 (0.0-0.2); BASO% 0.5 % (0.0-0.8); EOS# 0.26 X1000 (0.0-0.7); EOS% 3.4 % (0.0-10.0); HEMATOCRIT 32.8 % (42.0-52.0); IMM GRAN# 0.04 X1000 (0.0-0.04); IMM GRAN% 0.5 % (0.0-0.5); LYMPH% 15.9 % (20.5-51.1); MCH 27.9 PG (27-31); MCHC 30.5 g/dL (33-37); MCV 91.4 FL (81-99); MONO# 0.79 X1000 (0.11-0.59); MONO% 10.5 % (1.7-9.3); MPV 12.4 FL (7.4-10.4); NEUT# 5.22 X1000 (1.4-6.5); NEUT% 69.2 % (42.2-75.2); PLT 177 X1000 (130-400); RBC 3.59 XMIL (4.7-6.1); RDW 16.8 % (11.5-14.5); WBC 7.55 X1000 (4.8-10.8)
[2018-12-21 07:51] VITALS: BP 148/65
[2018-12-21] MEDS ORDERED: GLUCOPHAGE PO SCH (08:00)
[2018-12-21] MEDS ORDERED: PRECOSE PO SCH (08:00)
[2018-12-21] MEDS: BETAPACE PO SCH (08:35)
[2018-12-21] MEDS: LASIX PO SCH (08:36)
[2018-12-21] MEDS ORDERED: FLU VACCINE IM ONE (08:51)
[2018-12-21] MEDS ORDERED: ICAR-C PLUS PO SCH (09:00)
[2018-12-21] MEDS ORDERED: INJECTAFER 750 MG in NS 250 ML IV ONE (09:30)
--- NOTE | 2018-12-22 21:09 | DISCHARGE SUMMARY ---
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 Waiting for enteroscopy/cauterization on 01/12/2019 at [facility]. SECONDARY DIAGNOSES: 1. Type 2 diabetes. 2. Hydralazine-induced systemic lupus erythematosus. 3. Metabolic syndrome. 4. Fracture of T12. 5. Superficial bladder tumor. 6. Hyperlipidemia. 7. Hypertension. 8. Chronic atrial fibrillation. 9. Coronary artery disease with stents in the stents in the RCA and circumflex. 10. Status post left carotid endarterectomy. PROCEDURES: 1. Transfusion of 2 units of packed RBCs. 2. 750 mg IV injectable. BRIEF HISTORY: Please see the H and P that was done on 12/20/2018. In brief he is a 73-year-old white male with occult GI bleeding off and on for the last 2 years. Finally, a diagnosis was made for the cause of the bleeding by capsule endoscopy by Dr. Zuñiga. Waiting for enteroscopy by doctors at [facility] on January 13. He was symptomatic. Heme-positive stools. Hematocrit declined to 26. He was given 2 units of packed RBCs and 1 bag of injectable. Followup hematocrit was 32. Patient's symptoms were much improved. He is still in atrial fibrillation. He was discharged in stable condition. LABS: CBC: White cell count 7.5, hematocrit 32.8, platelet 177,000. DISCHARGE INSTRUCTIONS: 1. Tramadol 50 t.i.d., Lasix 40 p.o. b.i.d., metformin 850 t.i.d., Precose 25 mg t.i.d., Tylenol as needed for pain, Crestor 20 mg daily, Betapace 120 p.o. b.i.d., Icar-C Plus 1 tablet daily, latanoprost 1 drop both eyes at bedtime. 2. Follow up with [facility] code number stamper on January 12. 3. Follow up in my office in 2 weeks. cc: MD Tejas Kaplan MD
== END 2018-12-21 11:04 | disposition home or self-care (01) ==
LOC: DIRADM → 3N 17:07
PROVIDERS: ADMIT Internal Medicine; ATTEND Internal Medicine